=== PATIENT | female | born 1990 | race Caucasian/White ===

== ENCOUNTER 2019-02-23 19:39 | Emergency (ER) | payer BC, SELFPAY | END 2019-02-23 20:20 | disposition home or self-care (01) | LOC: SCSER 19:39 | DX: T16.2XXA Foreign body in left ear, initial encounter (principal); F41.9 Anxiety disorder, unspecified; F32.9 Major depressive disorder, single episode, unspecified | CPT/HCPCS: 99282 ==

== ENCOUNTER 2019-05-15 16:00 | Outpatient (CLI) | payer SELFPAY ==
--- NOTE | 2019-05-15 16:48 | RAD ---
XR Foot Lt 2 View: 05/15/2019 12:00 AM CLINICAL INDICATION: Pain COMPARISON: None. FINDINGS: Fracture:No fracture. Arthropathy:None of significance. Soft tissues:Soft tissue prominence at the midfoot and forefoot. IMPRESSION: 1. No acute osseous abnormality. 2. Soft tissue prominence of left foot. Correlate with physical exam.
== END 2019-05-15 16:01 | disposition home or self-care (01) ==
LOC: SCSRAD 16:00
PROVIDERS: ATTEND Family Medicine
DX: M79.672 Pain in left foot (principal)

== ENCOUNTER 2024-07-02 03:12 | Emergency (ER) | payer SELFPAY ==
[2024-07-02] MEDS ORDERED: Ketorolac Tromethamine 30 MG (1 mL) VIAL ONE (03:35)
[2024-07-02 03:58] LABS: #Basophils 0.11 10x3/uL (0.0-0.2); %Eosinophils 5.2 % (0.0-10.0); %Lymphocytes 30.5 % (21.0-51.0); %Monocytes 6.5 % (0.0-10.0); %Neutrophils 56.4 % (42.0-75.0); Hematocrit 36.6 % (36.0-47.0); Hemoglobin 12.8 g/dL (12.0-16.0); Mean Corpuscular Hemoglobin 31.5 pg (27.0-31.0); Mean Corpuscular Volume 90.1 fL (78.0-98.0); Mean Platelet Volume 10.4 fL (7.4-10.4); Platelet Count 329 10x3/uL (130-400); RBC Distribution Width 11.9 % (11.5-14.5); Red Blood Cell (RBC) Count 4.06 mill/uL (4.20-5.40)
[2024-07-02 04:04] LABS: BHCG - Serum Negative (NEGATIVE); Pregs Control Background? CLEAR/WHITE (CLR/WHITE); Pregs Control Bar Appear? YES (CONTROL BAR)
[2024-07-02 04:05] LABS: Bacteria/HPF None Seen HPF (None Seen); Bilirubin Negative (Negative); Blood, Urine Negative (Negative); CAUTI Indications for Culture Pelvic or flank pain; Clarity Extra Turbid (Clear); Glucose, Urine (Dipstick) Normal (Negative); Ketone, Urine Negative (Negative); Leukocyte Negative Leu/uL (Negative); Nitrite Negative (Negative); Protein, Urine (Dipstick) 10 mg/dL (Neg-Trace); RBC/HPF 0-3 HPF (0-3); Specific Gravity, Urine 1.019 (1.002-1.036); Squamous Epithelial 0-3 HPF (0-3); Urobilinogen Normal mg/dL (Less than 2); WBC/HPF None Seen HPF (0-3); pH, Urine 7.5 (5.0-9.0)
[2024-07-02 04:10] LABS: ALT (SGPT) 37 U/L (8-55); AST (SGOT) 20 U/L (5-34); Alkaline Phosphatase 61 U/L (40-110); Anion Gap 14 mmol/L (10-20); BUN (Urea Nitrogen) 10 mg/dL (7.0-18.7); Bilirubin, Total 0.3 mg/dL (0.2-1.2); Calc. Creatinine Clearance 0 mL/min (70-130); Calcium 8.6 mg/dL (7.8-10.44); Carbon Dioxide 24 mmol/L (22-29); Chloride 107 mmol/L (98-107); Estimated GFR 96; Globulin 3.2 g/dL (2.4-3.5); Glucose 103 mg/dL (70-105); Lipase 29 U/L (8-78); Potassium 3.3 mmol/L (3.5-5.1); Protein, Total 7.2 g/dL (6.0-8.3); Sodium 142 mmol/L (136-145)
[2024-07-02 04:14] LABS: Urine Culture Reflex No No
[2024-07-02] MEDS ORDERED: Potassium Chloride 20 MEQ TAB ONE (04:29)
== END 2024-07-02 08:25 | disposition home or self-care (01) ==
LOC: ERS 03:12
DX: N83.201 Unspecified ovarian cyst, right side (principal); N83.202 Unspecified ovarian cyst, left side
CPT/HCPCS: 74177; 76856; 80053; 81001; 83690; 84703; 85025; 96374; J1885

== ENCOUNTER 2024-07-21 15:56 | Emergency (ER) | payer SELFPAY ==
[2024-07-21] MEDS ORDERED: Ibuprofen 200 MG TAB ONE ×2 (16:34→16:36)
[2024-07-21] MEDS ORDERED: Dexamethasone 10 MG/ML VIAL ONE (16:35)
[2024-07-21] MEDS ORDERED: Acetaminophen 500 MG TAB ONE (16:35)
== END 2024-07-21 16:44 | disposition home or self-care (01) ==
LOC: ERS 15:56
DX: J02.9 Acute pharyngitis, unspecified (principal); B34.9 Viral infection, unspecified; Z55.6 Problems related to health literacy
CPT/HCPCS: 99282; J1100

== ENCOUNTER 2025-06-24 16:30 | Emergency (ER) | payer BC ==
[2025-06-24 17:45] LABS: Bacteria/HPF None Seen HPF (None Seen); CAUTI Indications for Culture Pelvic or flank pain; Glucose, Urine (Dipstick) Normal (Negative); Leukocyte Negative Leu/uL (Negative); Protein, Urine (Dipstick) 30 mg/dL (Neg-Trace); RBC/HPF 0-3 HPF (0-3); Specific Gravity, Urine 1.033 (1.002-1.036); WBC/HPF 0-3 HPF (0-3)
[2025-06-24 17:46] LABS: Pregnancy Test - Urine (BHCG) Negative (Negative); Pregu Control Background? CLEAR/WHITE (CLR/WHITE); Pregu Control Bar Appear? YES (CONTROL BAR)
[2025-06-24 17:47] LABS: Urine Culture Reflex No No
[2025-06-24 18:15] LABS: #Basophils 0.10 10x3/uL (0.0-0.2); #Eosinophils 0.21 10x3/uL (0.0-0.7); #Monocytes 0.60 10x3/uL (0.11-0.59); #Neutrophils 8.38 10x3/uL (1.40-6.50); %Basophils 0.9 % (0.0-1.0); %Eosinophils 1.9 % (0.0-10.0); %Lymphocytes 17.9 % (21.0-51.0); %Monocytes 5.3 % (0.0-10.0); %Neutrophils 73.7 % (42.0-75.0); Hematocrit 37.6 % (36.0-47.0); Hemoglobin 12.6 g/dL (12.0-16.0); Mean Corpuscular Hemoglobin 30.6 pg (27.0-31.0); Mean Corpuscular Volume 91.3 fL (78.0-98.0); Platelet Count 317 10x3/uL (130-400); Red Blood Cell (RBC) Count 4.12 mill/uL (4.20-5.40); White Blood Cell (WBC) Count 11.35 10x3/uL (4.8-10.8)
[2025-06-24 18:40] LABS: ALT (SGPT) 21 U/L (Less than 34); AST (SGOT) 24 U/L (11-34); Albumin 4.1 g/dL (3.1-4.5); Alkaline Phosphatase 58 U/L (40-110); Anion Gap 14 mmol/L (10-20); BUN (Urea Nitrogen) 9 mg/dL (7.0-18.7); Bilirubin, Total 0.4 mg/dL (0.3-1.2); Calc. Creatinine Clearance 0 mL/min (70-130); Calcium 8.8 mg/dL (7.8-10.44); Carbon Dioxide 25 mmol/L (22-29); Chloride 108 mmol/L (98-107); Globulin 3.0 g/dL (2.4-3.5); Glucose 89 mg/dL (70-105); Potassium 3.6 mmol/L (3.5-5.1); Sodium 143 mmol/L (136-145)
[2025-06-24] MEDS ORDERED: cefTRIAXone (ROCEPHIN) 500 MG VIAL ONE (19:12)
[2025-06-24] MEDS ORDERED: Lidocaine 1% PF 5 ML VIAL ONE (19:12)
[2025-06-25 00:47] LABS: Chlamydia by PCR, Vaginal Swab Not Detected (NotDetected); GC by PCR, Vaginal Swab Not Detected (NotDetected)
== END 2025-06-24 20:47 | disposition home or self-care (01) ==
LOC: ERS 16:30
DX: N76.0 Acute vaginitis (principal); D72.829 Elevated white blood cell count, unspecified
CPT/HCPCS: 74177; 80053; 81001; 81025; 85025; 87480; 87491; 87510; 87591; 87660; 96372; J0696